=== PATIENT | female | born 1950 | race Caucasian/White ===

== ENCOUNTER → 2021-09-21 | Day surgery (SDC) | payer MEDICARE, OTHER ==
[~2021-09-21] VITALS: Ht 167.6 cm; Wt 137.4 kg
[~2021-09-21] MED LIST: ADALAT CC30 MG PO; ASCORBIC ACID500 MG PO; LASIX20 MG PO; LIPITOR20 MG PO; PRILOSEC20 MG PO; ROCEPHIN2 GM IV; VANCOMYCIN1000 M1 IV; VENTOLIN HFA18 GM INH; XARELTO10 MG PO; ZESTRIL40 MG PO
[2021-09-21 08:26] LABS: HCT 40.3 % (37.0-47.0); HGB 12.6 g/dl (12.5-16.0); MCH 28.7 pg (25.0-31.0); MCHC 31.3 g/dL (32.0-36.0); MCV 91.8 fL (78.0-100.0); MPV 10.1 fL (6.0-9.5); RBC 4.39 M/uL (4.20-5.40); RDW 13.4 % (11.5-14.0); WBC 11.3 K/uL (4.0-10.5)
[2021-09-21 08:30] LABS: BILIRUBIN - TOTAL 0.4 mg/dL (0.2-1.0); BUN/CREAT RATIO (CALC) 22.6 RATIO; CREATININE 1.64 mg/dL (0.51-0.95); GLOBULIN (CALCULATION) 4.2 g/dL; POTASSIUM 4.3 mmol/L (3.5-5.1); TOTAL PROTEIN 7.2 g/dL (6.4-8.2)
== END | disposition home or self-care (01) ==
LOC: FAS 07:36
PROVIDERS: Surgery
DX: K31.9 Disease of stomach and duodenum, unspecified (principal); K29.60 Other gastritis without bleeding; E78.5 Hyperlipidemia, unspecified; I12.9 Hypertensive chronic kidney disease with stage 1 through stage 4 chronic kidney disease, or unspecified chronic kidney disease; N18.9 Chronic kidney disease, unspecified
CPT/HCPCS: 36415; 80053; J2250; J2704

== ENCOUNTER → 2021-10-19 | Day surgery (SDC) | payer MEDICARE, OTHER ==
[~2021-10-19] VITALS: Ht 167.6 cm; Wt 137.4 kg
[~2021-10-19] MED LIST changes: +NORCO 5-325 TA1 EACH PO; +ONDANSETRON ODT8 MG PO
[2021-10-19 09:30] LABS: HCT 40.2 % (37.0-47.0); HGB 12.4 g/dl (12.5-16.0); MCH 27.9 pg (25.0-31.0); MCHC 30.8 g/dL (32.0-36.0); MCV 90.5 fL (78.0-100.0); MPV 9.6 fL (6.0-9.5); RBC 4.44 M/uL (4.20-5.40); RDW 13.2 % (11.5-14.0); WBC 9.4 K/uL (4.0-10.5)
[2021-10-19 10:07] LABS: BILIRUBIN - TOTAL 0.3 mg/dL (0.2-1.0); BUN/CREAT RATIO (CALC) 17.3 RATIO; CREATININE 1.5 mg/dL (0.51-0.95); GLOBULIN (CALCULATION) 4.5 g/dL; POTASSIUM 4.9 mmol/L (3.5-5.1); TOTAL PROTEIN 7.5 g/dL (6.4-8.2)
== END | disposition home or self-care (01) ==
LOC: FAS 08:47
PROVIDERS: Surgery
DX: K80.10 Calculus of gallbladder with chronic cholecystitis without obstruction (principal); K76.0 Fatty (change of) liver, not elsewhere classified; K42.0 Umbilical hernia with obstruction, without gangrene; E83.19 Other disorders of iron metabolism; I12.9 Hypertensive chronic kidney disease with stage 1 through stage 4 chronic kidney disease, or unspecified chronic kidney disease; N18.9 Chronic kidney disease, unspecified; E78.5 Hyperlipidemia, unspecified; K21.9 Gastro-esophageal reflux disease without esophagitis; E66.01 Morbid (severe) obesity due to excess calories; Z68.42 Body mass index [BMI] 45.0-49.9, adult; Z88.1 Allergy status to other antibiotic agents; Z79.899 Other long term (current) drug therapy
CPT/HCPCS: 36415; 80053; 93005; C1758; J1100; J1170; J2405; J2704; J3010; J7120; Q9967